=== PATIENT | female | born 1930 | race Caucasian/White ===

== ENCOUNTER 2018-10-07 20:31 | Inpatient (IN) | payer OTHER, BC ==
[~2018-10-07] VITALS: Ht 152.4 cm; Wt 52.8 kg
[2018-10-07 20:44] VITALS: Ht 152.4 cm; Wt 52.8 kg
[2018-10-07 21:33] LABS: BASOPHIL % 0.2 % (0-2); PLATELET COUNT 243 x10^3mcL (130-400)
[2018-10-07 21:35] LABS: RED CELL DISTRIBUTION WIDTH 14.6 % (11.5-14.5)
[2018-10-07 21:39] LABS: microscopic required? YES; urine erythrocyte NEGATIVE (NEGATIVE)
[2018-10-07 21:56] LABS: ALKALINE PHOSPHATASE 32 U/L (46-116); ALT/SGPT 9 U/L (14-59); BILIRUBIN TOTAL 0.5 mg/dL (0.20-1.00); CHLORIDE SERUM 103 mmol/L (98-107); CREATININE SERUM 0.9 mg/dL (0.6-1.0); GLUCOSE SERUM 118 mg/dL (74-106); HDL CHOLESTEROL 50 mg/dL (40-60); LIPASE 100 IU/L (73-393); POTASSIUM SERUM 4.3 mmol/L (3.5-5.1); SODIUM SERUM 138 mmol/L (136-145); T4(THYROXINE) 8.5 ug/dL (4.7-13.3)
[2018-10-07 22:08] LABS: AST/SGOT 17 U/L (15-37)
[2018-10-07 22:13] LABS: AMYLASE 23 U/L (25-115); CHOLESTEROL 79 mg/dL (<200)
[2018-10-07 22:58] LABS: ALBUMIN 3.5 g/dL (3.4-5.0); CARBON DIOXIDE 24 mmol/L (21-32); TOTAL PROTEIN, SERUM 7.6 g/dL (6.4-8.2)
[2018-10-07] MEDS ORDERED: AVAPRO75 MG PO (22:58)
[2018-10-07] MEDS ORDERED: XARELTO10 M1 PO (22:58)
[2018-10-07 22:59] LABS: CALCIUM 10.2 mg/dL (8.5-10.1)
[2018-10-08 00:01] LABS: MAGNESIUM 1.7 mg/dL (1.8-2.4); PHOSPHOROUS 4.2 mg/dL (2.5-4.9)
[2018-10-08 01:00] VITALS: BP 154/84
[2018-10-08 05:32] VITALS: BP 143/71
[2018-10-08 05:58] LABS: BASOPHIL % 0.3 % (0-2); PLATELET COUNT 212 x10^3mcL (130-400)
[2018-10-08 06:30] LABS: RED CELL DISTRIBUTION WIDTH 14.8 % (11.5-14.5)
[2018-10-08 07:33] LABS: CALCIUM 9.6 mg/dL (8.5-10.1); CHLORIDE SERUM 108 mmol/L (98-107); CREATININE SERUM 0.9 mg/dL (0.6-1.0); GLUCOSE SERUM 98 mg/dL (74-106); MAGNESIUM 1.6 mg/dL (1.8-2.4); PHOSPHOROUS 4.2 mg/dL (2.5-4.9); POTASSIUM SERUM 4.6 mmol/L (3.5-5.1); SODIUM SERUM 142 mmol/L (136-145)
[2018-10-08 09:18] VITALS: BP 160/63
[2018-10-08 12:32] VITALS: BP 145/66
[2018-10-08 17:40] VITALS: BP 122/74
[2018-10-08 20:35] VITALS: BP 114/69
[2018-10-09 05:20] VITALS: BP 145/86
[2018-10-09 07:41] LABS: CALCIUM 9.7 mg/dL (8.5-10.1); CARBON DIOXIDE 25.7 mmol/L (21-32); CHLORIDE SERUM 104 mmol/L (98-107); CREATININE SERUM 0.9 mg/dL (0.6-1.0); GLUCOSE SERUM 100 mg/dL (74-106); MAGNESIUM 1.9 mg/dL (1.8-2.4); POTASSIUM SERUM 4.3 mmol/L (3.5-5.1); SODIUM SERUM 140 mmol/L (136-145)
[2018-10-09 08:00] VITALS: BP 172/91
[2018-10-09 08:12] LABS: BASOPHIL % 0.3 % (0-2); PLATELET COUNT 203 x10^3mcL (130-400); RED CELL DISTRIBUTION WIDTH 14.7 % (11.5-14.5)
[2018-10-09 11:51] VITALS: BP 172/91
== END 2018-10-09 12:55 | disposition home or self-care (01) | DRG 308 ==
LOC: ED 20:31 → DU 22:46
PROVIDERS: Emergency Medicine; ADMIT Internal Medicine
DX: I48.91 Unspecified atrial fibrillation (principal); N17.0 Acute kidney failure with tubular necrosis; E83.42 Hypomagnesemia; E83.52 Hypercalcemia; R73.03 Prediabetes; I25.10 Atherosclerotic heart disease of native coronary artery without angina pectoris; R80.9 Proteinuria, unspecified; I10 Essential (primary) hypertension; Z68.24 Body mass index [BMI] 24.0-24.9, adult; Z95.1 Presence of aortocoronary bypass graft; Z79.01 Long term (current) use of anticoagulants
CPT/HCPCS: 83880; 97116-GP; 97530-GP; J2405; J3475; J3490